=== PATIENT | female | born 1955 | race Caucasian/White ===

== ENCOUNTER 2016-12-16 10:31 | Emergency (ER) | payer MEDICARE, BC ==
[2016-12-16 10:43] VITALS: BP 130/71
[2016-12-16] MEDS ORDERED: DIAZEPAM 5 MG/ML SYRG IM ONE (11:04)
[2016-12-16] MEDS ORDERED: KETOROLAC TROMETHAMINE 60 MG/2 ML VIAL IM ONE ×2 (11:04→11:10)
[2016-12-16] MEDS ORDERED: DIAZEPAM 5 MG/ML SYRG ONE (11:10)
--- NOTE | 2016-12-16 11:21 | ERNOTE ---
Back Pain ER HPI Date of Service: 12/16/16 Presenting Symptoms: injury/pain to back Time Seen by Provider: 12/16/16 10:54 Source: patient, RN notes reviewed Exam Limitations: no limitations Immunizations: IMMUNIZATION HX Immunizations Up to Date Yes History of Influenza Vaccine No Allergies/Adverse Reactions: Allergies No Known Allergies Allergy (Verified 12/16/16 10:43) Home Medications: HOME MEDICATIONS Atenolol [Tenormin] 25 mg PO DAILY 08/14/15 [Last Taken Unknown] Enalapril Maleate [Vasotec] 20 mg PO BID 08/14/15 [Last Taken Unknown] Hydrochlorothiazide [Hydrodiuril] 25 mg PO DAILY 08/14/15 [Last Taken Unknown] Levothyroxine Sodium [Synthroid] 25 mcg PO DAILY 08/14/15 [Last Taken Unknown] Losartan Potassium [Cozaar] 100 mg PO DAILY 08/14/15 [Last Taken Unknown] Simvastatin [Zocor] 40 mg PO HS 08/14/15 [Last Taken Unknown] amLODIPine BESYLATE [Norvasc] 10 mg PO DAILY 08/14/15 [Last Taken Unknown] metFORMIN HCL [Glucophage] 1,000 mg PO BID 08/14/15 [Last Taken Unknown] Cyclobenzaprine HCl [Flexeril] 10 mg PO TID PRN #30 tab 12/16/16 [Last Taken Unknown] Glimepiride [Amaryl] 4 mg PO DAILY@0700 12/16/16 [Last Taken Unknown] Ibuprofen [Motrin] 600 mg PO Q6H PRN #40 tab 12/16/16 [Last Taken Unknown] Insulin Detemir [Levemir] 1 units SC 12/16/16 [Last Taken Unknown] Sitagliptin Phosphate [Januvia] 100 mg PO DAILY 12/16/16 [Last Taken Unknown] Narrative: 61 y/o female to ED in wheelchair from the walk in clinic for right sided low back pain that began without incident 3 days ago. Her pain is worse today despite seeing her chiropractor yesterday. She took ibuprofen earlier this morning with some improvement. She has no history of prior back problems. She does have chronic difficulty with mobility d/t an ankle dislocation on the left 5 years ago. She has to wear a brace on this extremity. She also uses a lift chair at home. She reports being ill with watery diarrhea for several days last week. This has resolved. Date (Duration): 12/13/16 Timing: Reports: getting worse Quality/Severity: Reports: severe, aching Location of pain: Reports: lower back, no radiation Activities at Onset: Reports: none - but recent alteration in activity d/t illness Recent Injury?: Reports: no Associated Symptoms: Reports: difficulty walking - chronic. Denies: fever/ chills, sweating, constipation/incontinence, nausea/vomiting, problems urinating , numbess/weakness in legs Prior Treament: Denies: recently seen, similar symptoms before Review of Systems - Review of Systems Constitutional: Present: recent illness. Absent: fever, chills EYE: Present: no symptoms reported ENT: Present: no symptoms reported Respiratory: Absent: shortness of breath, cough Cardiology: Absent: chest pain, syncope Gastrointestinal/Abdominal: Absent: nausea, vomiting, diarrhea, abdominal pain Genitourinary: Absent: frequency, dysuria, hematuria Musculoskeletal: Present: back pain, muscle pain. Absent: neck pain, joint pain Skin: Absent: rash, lesions, lumps Neurological: Absent: weakness, numbness, tingling Endocrine: Present: no symptoms reported Hematologic/Lymphatic: Present: no symptoms reported Psych: Present: no symptoms reported - Patient's Past Medical History Patient History - Medical: Diabetes Type 2 Insulin Dependent, Obesity Patient History - Cardiac/Respiratory: Hypertension Patient History - Cancer: No Hx of Cancer Patient History - Surgical Procedures: Cholecystectomy, Colonoscopy, LMP (females 10-50): Menopausal - Social History Living Situations: home Smoking Status: Never smoker Alcohol Use: none Drug Use: none Physical Exam - Physical Exam General Appearance: Present: wd/wn, alert, no apparent distress, obese, other - appropriately dressed and groomed, appears mildly uncomfortable Neck: Present: normal inspection, nontender, supple, full range of motion Respiratory: Present: no respiratory distress, normal breath sounds, no accessory muscle use, lungs clear Cardiovascular/Chest: Present: regular rate, rhythm, no murmur, normal peripheral pulses Back Exam: Present: no CVA tenderness, no vertebral tenderness, other - paraspinal muscle tenderness in right lumbar/sacral region Extremity Exam: Present: normal inspection, non-tender, no edema, decreased range of motion - left ankle - chronic Neurological Exam: Present: alert, oriented, normal mood/affect, no motor/ sensory deficits, other - Good strength against resistance in right leg, dorsiflexes great toe Skin Exam: Present: normal color, warm/dry ED Progress - Vital Signs Patient's Vital Signs:: I have reviewed the patient's vital signs. Vital Signs: Vital Signs 12/16/16 10:39 Temperature 35.4 C L Pulse Rate 57 L Respiratory 14 Rate Blood Pressure 130/71 O2 Sat by Pulse 100 Oximetry - Progress/Reassessment Chief Complaint: Back Pain Progress:: Improved Departure Clinical Impression: Low back pain Qualifiers: Chronicity: acute Back pain laterality: right Sciatica presence: without sciatica Qualified Code(s): M54.5 - Low back pain - Departure Disposition: Home Follow Up Needed Condition: Good Instructions: Back Pain, Adult Additional Instructions: Take ibuprofen routinely with food for the next several days Take muscle relaxant as needed Heat to sore area Gentle stretching and ambulation OK to see chiropractor as planned Follow up with your doctor if no improvement in 1 week Referrals: Edie Mayers ARNP [Primary Care Provider] - Prescriptions: Cyclobenzaprine HCl [Flexeril] 10 mg PO TID PRN #30 tab PRN Reason: MUSCLE SPASMS Ibuprofen [Motrin] 600 mg PO Q6H PRN #40 tab PRN Reason: Pain
== END 2016-12-16 11:28 | disposition home or self-care (01) ==
LOC: ER 10:31
DX: M54.5 Low back pain (principal); Z78.0 Asymptomatic menopausal state; Z90.49 Acquired absence of other specified parts of digestive tract; E11.9 Type 2 diabetes mellitus without complications; Z79.4 Long term (current) use of insulin; I10 Essential (primary) hypertension

== ENCOUNTER 2017-02-15 06:57 | Day surgery (SDC) | payer MEDICARE, BC ==
[~2017-02-15 06:57] MED LIST: ACETAMINOPHEN 325 MG TABLET PO PRN; ACETYLCHOLINE CHLORIDE 20 DROP KIT IO PRN; BUPIVACAINE HCL/PF 30 ML VIAL IJ PRN; CYCLOPENTOLATE HCL 20 DROP BTL LEFTEYE PRN; DEXTROSE 5%-0.5 NORMAL SALINE 1,000 ML IV PRN; EPINEPHrine 1 MG/ML AMPUL IO PRN; HYALURONATE SODIUM 0.4 ML DISP.SYRIN IO PRN; HYALURONATE SODIUM 0.85 ML DISP.SYRIN IO PRN; LIDOCAINE HCL/PF 200 MG/5 ML AMPUL TP PRN; LIDOCAINE HCL/PF 5 ML VIAL IO PRN; NORMAL SALINE 3 ML BOX IV PRN; TETRACAINE HCL 150 DROP BTL OP PRN
--- OUTSIDE RECORDS SUMMARY | 2017-02-15 07:00 | XMS REPORT | Continuity of Care Document ---
:1955 Author Organization [facility] ([facility]) Address [address] [place] [address] Phone [phone] Care Team Providers Name Role Phone Edie Mayers Primary Care Provider [phone] Source Comments This disclosure is being made pursuant to the Care Everywhere program, applicable federal and state laws, and may not contain all informaitonavailable regarding this patient.[facility] ([facility]) Active Allergies and Adverse Reactions No Known Allergies Current Medications Prescription Sig. Disp. Refills Start Date End Date Status hydrochlorothiazide take 25 mg by Active (HYDRODIURIL) 25 mg mouth daily. tablet atenolol (TENORMIN) 25 mg take 25 mg by Active tablet mouth daily. metformin (GLUCOPHAGE) take 1,000 mg by Active 1,000 mg tablet mouth 2 times daily with meals. amLODIPine (NORVASC) 5 mg Take 10 mg by Active tablet mouth daily. enalapril (VASOTEC) 20 mg Take 20 mg by Active tablet mouth 2 times daily. Indications: protein nephropathy simvastatin 40 mg tablet Take 40 mg by Active mouth every evening. losartan 100 mg tablet Take 100 mg by Active mouth daily. aspirin 325 mg EC tablet Take 1 Tab by 60 Tab 0 07/20/2011 Active mouth daily. Indications: dvt prophylaxis LEVOTHYROXINE 25 mcg 01/17/2015 Active tablet levETIRAcetam 500 mg Take 1 tablet 14 tablet 0 08/15/2015 Active tablet (500 mg total) by mouth 2 times daily CYCLOBENZAPRINE 5 mg 08/19/2015 Active tablet citalopram 10 mg tablet Take 10 mg by Active mouth daily CITALOPRAM 20 mg tablet 07/08/2015 Active cholecalciferol (VITAMIN Take 5,000 Units Active D3) 5,000 unit capsule by mouth daily. INSULIN DETEMIR (LEVEMIR 40 a.m. & 40 Active SC) p.m. brimonidine 0.15 % Instill 1 Drop 5 mL 11 04/16/2016 Active ophthalmic solution onto both eyes 3 times daily. 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 Diabetic foot ulcer 12/08/2011 Cellulitis of foot, right 12/08/2011 Hypertension 12/08/2011 Obesity, unspecified 12/08/2011 DIABETES UNCOMPL ADULT-UNCONTRLLED 09/05/2003 Immunizations Name Dates Previously Given Next Due Influenza, PF 08/27/2010 Social History Tobacco Use Types Packs/Day Years Used Date Never Smoker Smokeless Tobacco: Never Used Tobacco Cessation:Counseling Given: Yes Comments: Alcohol Use Drinks/Week oz/Week Comments No Last Filed Vital Signs Vital Sign Reading Time Taken Blood Pressure 160/72 10/04/2015 10:58 AM ATHLETIC AGENT Pulse 63 10/04/2015 10:58 AM ATHLETIC AGENT Temperature 35.6 C (96.1 F) 10/04/2015 10:58 AM ATHLETIC AGENT Respiratory Rate 18 08/19/2015 10:15 PM CDT Height 1.803 m (5' 10.98") 10/04/2015 10:58 AM ATHLETIC AGENT Weight 148.5 kg (327 lb 6.1 oz) 10/04/2015 10:58 AM ATHLETIC AGENT Body Mass Index 45.68 10/04/2015 10:58 AM ATHLETIC AGENT Oxygen Saturation 99% 08/19/2015 10:15 PM CDT Plan of Care Health Maintenance Due Date Last Done Comments HCV Screening 1955 Hepatitis B Vaccine (1 of 3 - 1955 Primary Series) Tdap Vaccine 1966 DIABETIC: Cholesterol 1973 Diabetic: Hdl 1973 Diabetic: Ldl 1973 DIABETIC: Triglycerides 1973 Td Vaccine 1973 Pneumococcal Vaccine (1 of 1 1974 - PPSV23) Cervical Cancer Screening 1985 Mammogram 1995 DIABETIC: Microalbumin 09/05/2004 09/05/2003 Colonoscopy 06/22/2005 DIABETIC: Foot Exam 05/12/2011 DIABETIC: Hemoglobin A1C 06/07/2012 12/08/2011, 08/22/2010 Zoster Vaccine 2015 Influenza Vaccine: Seasonal 06/29/2016 08/27/2010 (#1) DIABETIC: Retinal Eye Exam 08/13/2017 08/13/2016, Additional history exists 04/16/2016, 02/20/2016 Results from Last 3 Months Not on file
--- OUTSIDE RECORDS SUMMARY | 2017-02-15 07:01 | XMS REPORT | Summary of Care ---
:1955 Author Organization [facility] Address [address] [place] [id number] Care Team Providers Name Role Phone Rahel Mayers Primary Care Physician Encounter Date(s): 05/04/16 - 05/04/[address] [id number] Final: Type 2 diabetes mellitus without complications Final: Essential (primary) hypertension Final: Morbid (severe) obesity due to excess calories Discharge Disposition: Discharged to Home or Self Care Attending Physician: LARS Hernandez Admitting Physician: LARS Hernandez Vital Signs No data available for this section Problem List Condition Effective Dates Status Health Status Informant Ankle fracture(Confirmed) 2009 Active Benign hypertension(Confirmed) Active Diabetes mellitus type 2(Confirmed) Active Heart murmur(Confirmed) Active Microalbuminuria(Confirmed) Active Morbid obesity(Confirmed) Active Osteoporosis(Confirmed) Active Proteinuria(Confirmed) Active Varicose veins of lower Active extremities(Confirmed) Allergies, Adverse Reactions, Alerts No Known Medication Allergies Medications Soco-D 12 Hour 60 mg-120 mg oral tablet, extended release 1 tab(s), Oral, q12hr interval, # 14 tab(s), 0 Refill(s), Start Date: 07/17/15 10:59:00 CDT, Pharmacy: [id number] Start Date: 07/17/15 Stop Date: 08/15/15 Status: CompletedAmbien 10 mg oral tablet 1 tab(s), Oral, HS, PRN for sleep, 0 Refill(s) Start Date: 04/07/12 Stop Date: 06/25/14 Status: DiscontinuedamLODIPine 10 mg oral tablet 1 tab(s), Oral, Daily, # 90 tab(s), 3 Refill(s), Start Date: 06/25/14 10:06:00 CDT, Pharmacy: [place] [id number] Start Date: 06/25/14 Stop Date: 06/24/15 Status: CompletedamLODIPine 10 mg oral tablet 1 tab(s), Oral, Daily, Needs appt and labs, # 90 tab(s), 0 Refill(s), Start Date : 06/24/15 9:53:22 CDT, Pharmacy: [place] [id number] Special Instructions: Needs appt and labs Start Date: 06/24/15 Stop Date: 12/18/15 Status: CompletedamLODIPine 10 mg oral tablet 1 tab(s), Oral, Daily, # 90 tab(s), 3 Refill(s), Start Date: 12/18/15 11:43:00 PRODUCT STEWARD, Pharmacy: [place] [id number] Start Date: 12/18/15 Status: OrderedamLODIPine 10 mg oral tablet 1 tab(s), Oral, Daily, 0 Refill(s) Start Date: 05/28/14 Stop Date: 06/25/14 Status: Discontinuedaspirin 325 mg oral tablet 1 tab(s), Oral, Daily, 0 Refill(s) Start Date: 05/28/14 Status: Orderedatenolol 25 mg oral tablet 1 tab(s), Oral, Daily, # 90 tab(s), 3 Refill(s), Start Date: 06/25/14 10:06:00 CDT, Pharmacy: [place] [id number] Start Date: 06/25/14 Stop Date: 08/20/15 Status: Completedatenolol 25 mg oral tablet 1 tab(s), Oral, Daily, Was also sent on 08/20, # 90 tab(s), 3 Refill(s), Start Date: 08/26/15 16:13:00 CDT, Pharmacy: [place] [id number] Special Instructions: Was also sent on 08/20 Start Date: 08/26/15 Status: Orderedatenolol 25 mg oral tablet 1 tab(s), Oral, Daily, 0 Refill(s) Start Date: 05/28/14 Stop Date: 06/25/14 Status: Discontinuedatenolol 25 mg oral tablet 1 tab(s), Oral, Daily, # 90 tab(s), 3 Refill(s), Start Date: 08/20/15 8:25:00 CDT, Pharmacy: [place] [id number] Start Date: 08/20/15 Stop Date: 08/26/15 Status: CompletedAugmentin 500 mg-125 mg oral tablet 1 tab(s), Oral, q12hr interval, # 20 tab(s), 0 Refill(s), Start Date: 12/02/15 14:57:00 PRODUCT STEWARD, Pharmacy: [id number] Start Date: 12/02/15 Stop Date: 02/03/16 Status: CompletedAugmentin 500 mg-125 mg oral tablet 1 tab(s), Oral, q12hr interval, # 20 tab(s), 0 Refill(s), Start Date: 07/08/15 10:04:00 CDT, Pharmacy: [place] [id number] Start Date: 07/08/15 Stop Date: 07/17/15 Status: DiscontinuedCeleXA 20 mg oral tablet 1 tab(s), Oral, Daily, # 30 tab(s), 2 Refill(s), Start Date: 07/08/15 10:04:00 CDT, Pharmacy: [place] [id number] Start Date: 07/08/15 Stop Date: 08/15/15 Status: CompletedCheratussin AC 10 mg-100 mg/5 mL oral syrup 5 mL, Oral, q4hr, PRN for cough, # 240 mL, 0 Refill(s), Start Date: 07/09/15 15: 47:00 CDT, Pharmacy: [place] [id number] Start Date: 07/09/15 Stop Date: 08/15/15 Status: Discontinuedenalapril 20 mg oral tablet 1 tab(s), Oral, BID, # 180 tab(s), 3 Refill(s), Start Date: 06/25/14 10:06:00 CDT, Pharmacy: [place] [id number] Start Date: 06/25/14 Stop Date: 06/17/15 Status: Completedenalapril 20 mg oral tablet 1 tab(s), Oral, BID, Has an appt 7/30, # 180 tab(s), 3 Refill(s), Start Date: 10:34:27 CDT, Pharmacy: [place] [id number] Special Instructions: Has an appt 7/30 Start Date: 06/17/15 Stop Date: 06/11/16 Status: Orderedenalapril 20 mg oral tablet 1 tab(s), Oral, BID, 0 Refill(s) Start Date: 05/28/14 Stop Date: 06/25/14 Status: DiscontinuedFlexeril 5 mg oral tablet 1 tab(s), Oral, TID, PRN pain mild 1-3, # 21 tab(s), 0 Refill(s), Start Date: 16:31:00 CDT, Pharmacy: [facility] Start Date: 08/19/15 Stop Date: 02/03/16 Status: CompletedFlexeril 5 mg oral tablet tab(s), Oral, TID, PRN pain mild 1-3, # 21 tab(s), 0 Refill(s), Start Date: 16:24:00 CDT Start Date: 08/19/15 Stop Date: 08/19/15 Status: DiscontinuedHumaLOG 100 units/mL subcutaneous solution See Instructions, inject 8 units + additional per sliding scale by Subcutaneous route 30 minutes before meals 3 month supply please, # 10 mL, 0 Refill(s), Start Date: 06/25/14 10:06:00 CDT, Pharmacy:[facility] Special Instructions: inject 8 units + additional per sliding scale by Subcutaneous route 30 minutes before meals 3 month supply please Start Date: 06/25/14 Stop Date: 02/03/16 Status: DiscontinuedHumaLOG 100 units/mL subcutaneous solution See Instructions, inject 5 units + additional per sliding scale by Subcutaneous route 30 minutes before meals, 0 Refill(s) Special Instructions: inject 5 units + additional per sliding scale by Subcutaneous route 30 minutes before meals Start Date: 05/28/14 Stop Date: 06/25/14 Status: Discontinuedhydrochlorothiazide 25 mg oral tablet 1 tab(s), Oral, Daily, # 90 tab(s), 3 Refill(s), Start Date: 06/25/14 10:06:00 CDT, Pharmacy: [facility] Start Date: 06/25/14 Stop Date: 08/20/15 Status: Completedhydrochlorothiazide 25 mg oral tablet 1 tab(s), Oral, Daily, Was also sent on 08/20, # 90 tab(s), 3 Refill(s), Start Date: 08/26/15 16:13:00 CDT, Pharmacy: [facility] Special Instructions: Was also sent on 08/20 Start Date: 08/26/15 Status: Orderedhydrochlorothiazide 25 mg oral tablet 1 tab(s), Oral, Daily, 0 Refill(s) Start Date: 05/28/14 Stop Date: 06/25/14 Status: Discontinuedhydrochlorothiazide 25 mg oral tablet 1 tab(s), Oral, Daily, # 90 tab(s), 3 Refill(s), Start Date: 08/20/15 8:25:00 CDT, Pharmacy: [facility] Start Date: 08/20/15 Stop Date: 08/26/15 Status: CompletedLantus 100 units/mL subcutaneous solution See Instructions, inject 80 units by subcutaneous route in AM and 53 units in PM 3 months supply please , # 10 mL, 1 Refill(s), Start Date: 11/26/14 9 :59:29 PRODUCT STEWARD, Pharmacy: [facility] Special Instructions: inject 80 units by subcutaneous route in AM and 53 units in PM 3 months supply please Start Date: 11/26/14 Stop Date: 09/05/15 Status: CompletedLantus 100 units/mL subcutaneous solution See Instructions, inject 80 units by subcutaneous 3 months supply please- or enough for each fill ,Notice med change., # 3 vial(s), 5 Refill(s), Start Date: 09/09/15 15:13:00 CDT, Pharmacy: [place] [id number] Special Instructions: inject 80 units by subcutaneous 3 months supply please- or enough for each fill ,Notice med change. Start Date: 09/09/15 Stop Date: 12/18/15 Status: DiscontinuedLantus 100 units/mL subcutaneous solution See Instructions, inject 80 units by subcutaneous route in AM and 53 units in PM 3 months supply please ,Notice med increase, # 10 mL, 1 Refill(s), Start Date: 09/05/15 18:03:00 CDT, Pharmacy:[facility] Special Instructions: inject 80 units by subcutaneous route in AM and 53 units in PM 3 months supply please ,Notice med increase Start Date: 09/05/15 Stop Date: 09/09/15 Status: CompletedLantus 100 units/mL subcutaneous solution See Instructions, inject 60 units by subcutaneous route in AM and 50 units in PM 3 months supply please , # 10 mL, 3 Refill(s), Pharmacy: [facility] Special Instructions: inject 60 units by subcutaneous route in AM and 50 units in PM 3 months supply please Start Date: 06/25/14 Stop Date: 08/22/14 Status: CompletedLantus 100 units/mL subcutaneous solution See Instructions, inject 60 units by subcutaneous route in AM and 50 units in PM , 0 Refill(s) Special Instructions: inject 60 units by subcutaneous route in AM and 50 units in PM Start Date: 05/28/14 Stop Date: 06/25/14 Status: DiscontinuedLantus 100 units/mL subcutaneous solution See Instructions, inject 60 units by subcutaneous route in AM and 50 units in PM 3 months supply please , # 10 mL, 1 Refill(s), Start Date: 08/22/14 14:24:45 CDT, Pharmacy: [facility] Special Instructions: inject 60 units by subcutaneous route in AM and 50 units in PM 3 months supply please Start Date: 08/22/14 Stop Date: 11/26/14 Status: CompletedLevemir 100 units/mL subcutaneous solution See Instructions, Subcutaneous 48 units bid. DC Lantus. Dispense #90 day supply , # 3 bottles, 3 Refill(s), Start Date: 12/18/15 11:43:00 PRODUCT STEWARD, Pharmacy: [id number], [id number], 09/29/17 Special Instructions: Subcutaneous 48 units bid. DC Lantus. Dispense #90 day supply Start Date: 12/18/15 Status: OrderedLevemir 100 units/mL subcutaneous solution See Instructions, Subcutaneous 80 units daily. DC Lantus. Dispense #90 day supply, # 3 bottles, 3 Refill(s), Start Date: 12/10/15 11:17:00 PRODUCT STEWARD, Pharmacy: [facility] Special Instructions: Subcutaneous 80 units daily. DC Lantus. Dispense #90 day supply Start Date: 12/10/15 Stop Date: 12/18/15 Status: CompletedLevemir 100 units/mL subcutaneous solution See Instructions, Subcutaneous, # 3 bottles, 3 Refill(s), Start Date: 12/10/15 8 :31:00 PRODUCT STEWARD Special Instructions: Subcutaneous Start Date: 12/10/15 Stop Date: 12/10/15 Status: Discontinuedlosartan 100 mg oral tablet 1 tab(s), Oral, Daily, # 90 tab(s), 3 Refill(s), Start Date: 06/25/14 10:06:14 CDT, Pharmacy: [place] [id number] Start Date: 06/25/14 Stop Date: 10/03/15 Status: Completedlosartan 100 mg oral tablet 1 tab(s), Oral, Daily, Appt due in Dec, # 90 tab(s), 0 Refill(s), Start Date: 11:02:00 PRODUCT STEWARD, Pharmacy: [facility] Special Instructions: Appt due in Dec Start Date: 10/03/15 Stop Date: 12/30/15 Status: Completedlosartan 100 mg oral tablet See Instructions, 1 tab(s) Oral Daily-Has been told to [facility] appt on her last fill. Emmy Allison temp fill, # 30 tab(s), 0 Refill(s), Start Date: 12/30/15 12:06: 00 PRODUCT STEWARD, Pharmacy: [facility] Special Instructions: 1 tab(s) Oral Daily-Has been told to [facility] appt on her last fill. Emmy Allison temp fill Start Date: 12/30/15 Stop Date: 02/05/16 Status: Completedlosartan 100 mg oral tablet 1 tab(s), Oral, Daily, PLEASE INFORM PATIENT THAT SHE NEEDS TO MAKE AN APPT WITH [facility]. NO FURTHER REFILLS WILL BE AUTHORIZED, # 30 tab(s), 0 Refill(s), Pharmacy: [facility] Special Instructions: PLEASE INFORM PATIENT THAT SHE NEEDS TO MAKE AN APPT WITH [facility]. NO FURTHER REFILLS WILL BE AUTHORIZED Start Date: 06/08/14 Stop Date: 06/25/14 Status: Discontinuedlosartan 100 mg oral tablet 1 tab(s), Oral, Daily, PLEASE INFORM PATIENT THAT SHE NEEDS TO MAKE AN APPT WITH [facility]. NO FURTHER REFILLS WILL BE AUTHORIZED, # 30 tab(s), 0 Refill(s), Pharmacy: [place] [id number] Special Instructions: PLEASE INFORM PATIENT THAT SHE NEEDS TO MAKE AN APPT WITH [facility]. NO FURTHER REFILLS WILL BE AUTHORIZED Start Date: 05/03/14 Stop Date: 06/08/14 Status: Completedlosartan 100 mg oral tablet 1 tab(s), Oral, Daily, PLEASE INFORM PATIENT THAT SHE NEEDS TO MAKE AN APPT WITH [facility]. NO FURTHER REFILLS WILL BE AUTHORIZED, # 30 tab(s), 0 Refill(s) Special Instructions: PLEASE INFORM PATIENT THAT SHE NEEDS TO MAKE AN APPT WITH [facility]. NO FURTHER REFILLS WILL BE AUTHORIZED Start Date: 05/03/14 Stop Date: 05/03/14 Status: Discontinuedlosartan 100 mg oral tablet 1 tab(s), Oral, Daily, # 30 tab(s), 5 Refill(s), Start Date: 02/05/16 21:38:00 PRODUCT STEWARD, Pharmacy: [place] [id number] Start Date: 02/05/16 Status: OrderedmetFORMIN 1000 mg oral tablet 1 tab(s), Oral, BID, # 180 tab(s), 3 Refill(s), Start Date: 06/25/14 10:06:00 CDT, Pharmacy: [place] [id number] Start Date: 06/25/14 Stop Date: 07/31/15 Status: CompletedmetFORMIN 1000 mg oral tablet 1 tab(s), Oral, BID, # 180 tab(s), 5 Refill(s), Start Date: 07/31/15 8:52:00 CDT , Pharmacy: [place] [id number] Start Date: 07/31/15 Stop Date: 01/21/17 Status: OrderedmetFORMIN 1000 mg oral tablet 1 tab(s), Oral, BID, 0 Refill(s) Start Date: 05/28/14 Stop Date: 06/25/14 Status: DiscontinuedMucinex mg, Oral, q12hr interval, 0 Refill(s), Start Date: 05/04/16 13:36:00 CDT Start Date: 05/04/16 Stop Date: 05/04/16 Status: DiscontinuedMucinex 600 mg oral tablet, extended release 1 tab(s), Oral, q12hr interval, # 20 tab(s), 0 Refill(s), Start Date: 05/04/16 13:43:00 CDT, Pharmacy: [facility] Start Date: 05/04/16 Stop Date: 05/14/16 Status: Orderednabumetone 500 mg oral tablet 2 tab(s), Oral, Daily, # 60 tab(s), 0 Refill(s), Start Date: 08/15/15 9:45:00 CDT, Pharmacy: [facility] Start Date: 08/15/15 Stop Date: 08/15/15 Status: CompletedOnglyza 5 mg oral tablet 1 tab(s), Oral, Daily, # 21 tab(s), 0 Refill(s), Start Date: 02/27/16 17:21:00 CDT, samples given to patient (Rx), [id number], 01/27/17 Start Date: 02/27/16 Stop Date: 03/19/16 Status: CompletedOnglyza 5 mg oral tablet 1 tab(s), Oral, Daily, samples- Also 2.5 mg x 2 boxes [id number], # 3 boxes, 0 Refill(s), Start Date: 05/04/16 11:38:23 CDT, samples given to patient (Rx), [id number] x 3 boxes, 01/27/17 Special Instructions: samples- Also 2.5 mg x 2 boxes [id number] Start Date: 05/04/16 Status: OrderedOnglyza 5 mg oral tablet 1 tab(s), Oral, Daily, samples, # 42 tab(s), 0 Refill(s), Start Date: 03/19/16 11:06:35 CDT, samples given to patient (Rx), [id number] x 42 tabs, 01/27/17 Special Instructions: samples Start Date: 03/19/16 Stop Date: 05/04/16 Status: CompletedPercocet 5/325 tab(s), Oral, q6hr interval, 0 Refill(s), Start Date: 08/15/15 8:57:00 CDT Start Date: 08/15/15 Stop Date: 3/7/16 Status: CompletedPromethazine VC 6.25 mg-5 mg/5 mL oral syrup 5 mL, Oral, q6hr interval, PRN cough, # 240 mL, 0 Refill(s), Start Date: 10:05:00 CDT Start Date: 07/08/15 Stop Date: 07/09/15 Status: Discontinuedsimvastatin 20 mg oral tablet 1 tab(s), Oral, HS, called to [facility] today., # 90 tab(s), 0 Refill(s), Start Date : 12/18/15 13:33:00 PRODUCT STEWARD Special Instructions: called to [facility] today. Start Date: 12/18/15 Status: Orderedsimvastatin 40 mg oral tablet 1 tab(s), Oral, HS, # 90 tab(s), 3 Refill(s), Start Date: 09/05/15 11:13:00 CDT , Pharmacy: [place] [id number] Start Date: 09/05/15 Stop Date: 02/03/16 Status: Completedsimvastatin 40 mg oral tablet 1 tab(s), Oral, HS, # 90 tab(s), 3 Refill(s), Start Date: 06/25/14 10:06:10 CDT , Pharmacy: [facility] Start Date: 06/25/14 Stop Date: 09/05/15 Status: Completedsimvastatin 40 mg oral tablet 1 tab(s), Oral, HS, PLEASE INFORM PATIENT THAT SHE NEEDS TO MAKE AN APPT WITH [facility]. NO FURTHER REFILLS WILL BE AUTHORIZED., # 30 tab(s), 0 Refill(s), Pharmacy: [place] [id number] Special Instructions: PLEASE INFORM PATIENT THAT SHE NEEDS TO MAKE AN APPT WITH [facility]HEL. NO FURTHER REFILLS WILL BE AUTHORIZED. Start Date: 05/03/14 Stop Date: 06/20/14 Status: Completedsimvastatin 40 mg oral tablet 1 tab(s), Oral, HS, PLEASE INFORM PATIENT THAT SHE NEEDS TO MAKE AN APPT WITH [facility]. NO FURTHER REFILLS WILL BE AUTHORIZED., # 30 tab(s), 0 Refill(s) Special Instructions: PLEASE INFORM PATIENT THAT SHE NEEDS TO MAKE AN APPT WITH [facility]. NO FURTHER REFILLS WILL BE AUTHORIZED. Start Date: 05/03/14 Stop Date: 05/03/14 Status: Discontinuedsimvastatin 40 mg oral tablet 1 tab(s), Oral, HS, PLEASE INFORM PATIENT THAT SHE NEEDS TO MAKE AN APPT WITH [facility]. NO FURTHER REFILLS WILL BE AUTHORIZED., # 30 tab(s), 0 Refill(s), Pharmacy: [place] [id number] Special Instructions: PLEASE INFORM PATIENT THAT SHE NEEDS TO MAKE AN APPT WITH [facility]HEL. NO FURTHER REFILLS WILL BE AUTHORIZED. Start Date: 06/20/14 Stop Date: 06/25/14 Status: DiscontinuedSynthroid 25 mcg (0.025 mg) oral tablet 1 tab(s), Oral, Daily, # 90 tab(s), 0 Refill(s), Start Date: 06/25/14 10:06:00 CDT, Pharmacy: [place] [id number] Start Date: 06/25/14 Stop Date: 09/25/14 Status: CompletedSynthroid 25 mcg (0.025 mg) oral tablet 1 tab(s), Oral, Daily, Due for an appt and labs, # 90 tab(s), 0 Refill(s), Start Date: 06/24/15 9:53:21 CDT, Pharmacy: [place] [id number] Special Instructions: Due for an appt and labs Start Date: 06/24/15 Stop Date: 12/18/15 Status: CompletedSynthroid 25 mcg (0.025 mg) oral tablet 1 tab(s), Oral, Daily, # 90 tab(s), 3 Refill(s), Start Date: 12/18/15 11:43:00 PRODUCT STEWARD, Pharmacy: [facility] Start Date: 12/18/15 Status: OrderedSynthroid 25 mcg (0.025 mg) oral tablet 1 tab(s), Oral, Daily, # 90 tab(s), 3 Refill(s), Start Date: 09/25/14 10:30:31 CDT, Pharmacy: [place] [id number] Start Date: 09/25/14 Stop Date: 06/24/15 Status: CompletedTessalon 200 mg oral capsule 1 cap(s), Oral, TID, PRN cough, # 60 tab(s), 1 Refill(s), Start Date: 09/25/14 10:29:00 CDT, Pharmacy: [facility] Start Date: 09/25/14 Stop Date: 12/25/14 Status: DiscontinuedZithromax 250 mg oral tablet See Instructions, as directed on package labeling, # 6 tab(s), 0 Refill(s), Start Date: 07/17/15 10:55:00 CDT, Pharmacy: [id number] Special Instructions: as directed on package labeling Start Date: 07/17/15 Stop Date: 08/15/15 Status: Discontinued Results Patient Viewable Results Most recent to oldest [Reference Range]: 1 Sodium Lvl [135-144 mEq/L] 142 mEq/L (05/04/16 7:01 AM) Potassium Lvl [3.3-4.8 mEq/L] 4.5 mEq/L (05/04/16 7:01 AM) Chloride Lvl [98-107 mEq/L] 105 mEq/L (05/04/16 7:01 AM) Bicarbonate Lvl [22-30 mmol/L] 25 mmol/L (05/04/16 7:01 AM) Anion Gap [10.0-20.0] 16.5 (05/04/16 7:01 AM) Glucose Lvl [70-108 mg/dL] 184 mg/dL *HI* (05/04/16 7:01 AM) BUN [7-21 mg/dL] 20 mg/dL (05/04/16 7:01 AM) Creatinine Lvl [0.50-1.20 mg/dL] 0.92 mg/dL (05/04/16 7:01 AM) BUN/Creat Ratio 21.7 *NA* (05/04/16 7:01 AM) eGFR AA [>=60] >60 (05/04/16 7:01 AM) eGFR RODO [>=60] >60 (05/04/16 7:01 AM) Calcium Lvl [8.6-10.2 mg/dL] 9.6 mg/dL (05/04/16 7:01 AM) Total Protein [6.4-8.3 g/dL] 7.3 g/dL (05/04/16 7:01 AM) Albumin Lvl [3.5-5.2 g/dL] 3.6 g/dL (05/04/16 7:01 AM) Globulin 3.7 *NA* (05/04/16 7:01 AM) A/G Ratio [0.9-1.8] 1.0 (05/04/16 7:01 AM) Bilirubin Total [0.1-1.0 mg/dL] 0.3 mg/dL (05/04/16 7:01 AM) Alkaline Phosphatase [39-129 unit/L] 87 unit/L (05/04/16 7:01 AM) AST [0-39 unit/L] 14 unit/L (05/04/16 7:01 AM) ALT [0-40 unit/L] 9 unit/L (05/04/16 7:01 AM) Glycated Hemoglobin [4.8-6.0 %] 9.5 % *HI* (05/04/16 7:01 AM) Estimated Average Glucose 226 mg/dL *NA* (05/04/16 7:01 AM) Cholesterol Total [0-200 mg/dL] 104 mg/dL (05/04/16 7:01 AM) Triglyceride [0-199 mg/dL] 148 mg/dL (05/04/16 7:01 AM) HDL Cholesterol [40-100 mg/dL] 35 mg/dL *LOW* (05/04/16 7:01 AM) LDL Cholesterol (Direct) [0-129 mg/dL] 51 mg/dL (05/04/16 7:01 AM) Non HDL Cholesterol [0-159 mg/dL] 69 mg/dL (05/04/16 7:01 AM) Microalbumin, Ur 21 mg/L *NA* (05/04/16 7:05 AM) Creatinine, Urine MA 77.6 mg/dL *NA* (05/04/16 7:05 AM) Ur Microalb/Creat Ratio [0-29 mg/g Cr] 27 mg/g Cr (05/04/16 7:05 AM) Estimated Creatinine Clearance 101.79 mL/min (05/04/16 7:40 AM) Immunizations Vaccine Date Refusal Reason influenza virus vaccine, inactivated1 09/09/15 1Result Comment: [09/11/2015] [facility] Procedures Procedure Date Related Diagnosis Body Site Echocardiogram1 07/28/12 Right sided toe amputation 2011 Surgery for dislocated ankle 2009 Cholecystectomy ( open procedure) 1974 section x 3 1EF=60-65% Social History No data available for this section Assessment and Plan No data available for this section
--- OUTSIDE RECORDS SUMMARY | 2017-02-15 07:01 | XMS REPORT | Summary of Care ---
:1955 Author Organization [facility] Address [address] [place] [address] Care Team Providers Name Role Phone Rahel Mayers Primary Care Physician Encounter Date(s): 05/04/16 - 05/04/16 [facility], [address] [place], [place] [address] Discharge Diagnosis: Benign hypertension Discharge Diagnosis: Cough Discharge Disposition: 01 Discharged to Home or Self Care Attending Physician: LARS Hernandez Referring Physician: LARS Hernandez Vital Signs Most recent to oldest [Reference Range]: 1 Temperature Tympanic [36.6-38.1 DegC] 36.0 DegC *LOW* (05/04/16 10:50 AM) Temperature C to F 96.8 (05/04/16 10:50 AM) Peripheral Pulse Rate [60-100 bpm] 56 bpm *LOW* (05/04/16 10:50 AM) SpO2 97 % (05/04/16 10:50 AM) Blood Pressure [90-130/60-90 mmHg] 140/84mmHg *HI* (05/04/16 10:50 AM) Mean Arterial Pressure, Cuff 103 mmHg (05/04/16 10:50 AM) Most recent to oldest [Reference Range]: 1 Height/Length Measured 175.23 cm (05/04/16 10:50 AM) Weight Dosing 143.50 kg1 (05/04/16 10:53 AM) Weight Measured 143.5 kg (05/04/16 10:50 AM) BSA Measured 2.51 m2 (05/04/16 10:50 AM) Body Mass Index Measured 46.73 kg/m2 (05/04/16 10:50 AM) 1Result Comment: This result was because the dosing weight was either not entered or it is>30 days old. This result is based off: Weight Measured May 04, 2016 10:50:00 CDT by Cherie Doss [facility] Problem List Condition Effective Dates Status Health [...] Refill(s), Start Date: 07/17/15 10:59:00 CDT, [facility] [place] [id number] Start Date: 07/17/15 Stop Date: 08/15/15 Status: CompletedAmbien 10 mg oral tablet 1 tab(s), Oral, HS, PRN for sleep, 0 Refill(s) Start Date: 04/07/12 Stop Date: 06/25/14 Status: DiscontinuedamLODIPine 10 mg oral tablet 1 tab(s), Oral, Daily, # 90 tab(s), 3 Refill(s), Start Date: 06/25/14 10:06:00 CDT, [facility] [place] [id number] Start Date: 06/25/14 Stop Date: 06/24/15 Status: CompletedamLODIPine 10 mg oral tablet 1 tab(s), Oral, Daily, Needs appt and labs, # 90 tab(s), 0 Refill(s), Start Date : 06/24/15 9:53:22 CDT, Pharmacy: [facility] Special Instructions: Needs appt and labs Start Date: 06/24/15 Stop Date: 12/18/15 Status: CompletedamLODIPine 10 mg oral tablet 1 tab(s), Oral, Daily, # 90 tab(s), 3 Refill(s), Start Date: 12/18/15 11:43:00 SPECIMEN COLLECTOR, Pharmacy: [place] [id number] Start Date: 12/18/15 Status: OrderedamLODIPine 10 mg oral tablet 1 tab(s), Oral, Daily, 0 Refill(s) Start Date: 05/28/14 Stop Date: 06/25/14 Status: Discontinuedaspirin 325 mg oral tablet 1 tab(s), Oral, Daily, 0 Refill(s) Start Date: 05/28/14 Status: Orderedatenolol 25 mg oral tablet 1 tab(s), Oral, Daily, # 90 tab(s), 3 Refill(s), Start Date: 06/25/14 10:06:00 CDT, Pharmacy: [place] [id number] Start Date: 06/25/14 Stop Date: 08/20/15 Status: Completedatenolol 25 mg oral tablet 1 tab(s), Oral, Daily, Was also sent on 08/20, # 90 tab(s), 3 Refill(s), Start Date: 08/26/15 16:13:00 CDT, Pharmacy: [place] [id number] Special Instructions: Was also sent on 08/20 Start Date: 08/26/15 Status: Orderedatenolol 25 mg oral tablet 1 tab(s), Oral, Daily, 0 Refill(s) Start Date: 05/28/14 Stop Date: 06/25/14 Status: Discontinuedatenolol 25 mg oral tablet 1 tab(s), Oral, Daily, # 90 tab(s), 3 Refill(s), Start Date: 08/20/15 8:25:00 CDT, Pharmacy: [facility] Start Date: 08/20/15 Stop Date: 08/26/15 Status: CompletedAugmentin 500 mg-125 mg oral tablet 1 tab(s), Oral, q12hr interval, # 20 tab(s), 0 Refill(s), Start Date: 12/02/15 14:57:00 SPECIMEN COLLECTOR, Pharmacy: [id number] Start Date: 12/02/15 Stop Date: 02/03/16 Status: CompletedAugmentin 500 mg-125 mg oral tablet 1 tab(s), Oral, q12hr interval, # 20 tab(s), 0 Refill(s), Start Date: 07/08/15 10:04:00 CDT, Pharmacy: [facility] Start Date: 07/08/15 Stop Date: 07/17/15 Status: DiscontinuedCeleXA 20 mg oral tablet 1 tab(s), Oral, Daily, # 30 tab(s), 2 Refill(s), Start Date: 07/08/15 10:04:00 CDT, Pharmacy: [place] [id number] Start Date: 07/08/15 Stop Date: 08/15/15 Status: CompletedCheratussin AC 10 mg-100 mg/5 mL oral syrup 5 mL, Oral, q4hr, PRN for cough, # 240 mL, 0 Refill(s), Start Date: 07/09/15 15: 47:00 CDT, Pharmacy: [facility] Start Date: 07/09/15 Stop Date: 08/15/15 Status: Discontinuedenalapril 20 mg oral tablet 1 tab(s), Oral, BID, # 180 tab(s), 3 Refill(s), Start Date: 06/25/14 10:06:00 CDT, Pharmacy: [place] [id number] Start Date: 06/25/14 Stop Date: 06/17/15 Status: Completedenalapril 20 mg oral tablet 1 tab(s), Oral, BID, Has an appt 06/27, # 180 tab(s), 3 Refill(s), Start Date: 10:34:27 CDT, Pharmacy: [place] [id number] Special Instructions: Has an appt 06/27 Start Date: 06/17/15 Stop Date: 06/11/16 Status: Orderedenalapril 20 mg oral tablet 1 tab(s), Oral, BID, 0 Refill(s) Start Date: 05/28/14 Stop Date: 06/25/14 Status: DiscontinuedFlexeril 5 mg oral tablet 1 tab(s), Oral, TID, PRN pain mild 1-3, # 21 tab(s), 0 Refill(s), Start Date: 16:31:00 CDT, Pharmacy: [place] [id number] Start Date: 08/19/15 Stop Date: 02/03/16 Status: [...] 0 Refill(s), Start Date: 06/25/14 10:06:00 CDT, Pharmacy:[facility] Special Instructions: inject 8 units + additional [...] Refill(s), Start Date: 06/25/14 10:06:00 CDT, Pharmacy: [facility] Start Date: 06/25/14 Stop Date: 08/20/15 Status: Completedhydrochlorothiazide 25 mg oral tablet 1 tab(s), Oral, Daily, Was also sent on 08/20, # 90 tab(s), 3 Refill(s), Start Date: 08/26/15 16:13:00 CDT, Pharmacy: [facility] Special Instructions: Was also sent on 08/20 Start Date: 08/26/15 Status: Orderedhydrochlorothiazide 25 mg oral tablet 1 tab(s), Oral, Daily, 0 Refill(s) Start Date: 05/28/14 Stop Date: 06/25/14 Status: Discontinuedhydrochlorothiazide 25 mg oral tablet 1 tab(s), Oral, Daily, # 90 tab(s), 3 Refill(s), Start Date: 08/20/15 8:25:00 CDT, Pharmacy: [facility] Start Date: 08/20/15 Stop Date: 08/26/15 Status: CompletedLantus 100 units/mL subcutaneous solution See Instructions, inject 80 units by subcutaneous route in AM and 53 units in PM 3 months supply please , # 10 mL, 1 Refill(s), Start Date: 11/26/14 9 :59:29 SPECIMEN COLLECTOR, Pharmacy: [facility] Special Instructions: inject 80 units by subcutaneous route in AM and 53 units in PM 3 months supply please Start Date: 11/26/14 Stop Date: 09/05/15 Status: CompletedLantus 100 units/mL subcutaneous solution See Instructions, inject 80 units by subcutaneous 3 months supply please- or enough for each fill ,Notice med change., # 3 vial(s), 5 Refill(s), Start Date: 09/09/15 15:13:00 CDT, [place] [id number] Special Instructions: inject 80 units by subcutaneous 3 months supply please- or enough for each fill ,Notice med change. Start Date: 09/09/15 Stop Date: 12/18/15 Status: DiscontinuedLantus 100 units/mL subcutaneous solution See Instructions, inject 80 units by subcutaneous route in AM and 53 units in PM 3 months supply please ,Notice med increase, # 10 mL, 1 Refill(s), Start Date: 09/05/15 18:03:00 CDT, Pharmacy:[facility] Special Instructions: inject 80 units by subcutaneous route in AM and 53 units in PM 3 months supply please ,Notice med increase Start Date: 09/05/15 Stop Date: 09/09/15 Status: CompletedLantus 100 units/mL subcutaneous solution See Instructions, inject 60 units by subcutaneous route in AM and 50 units in PM 3 months supply please , # 10 mL, 3 Refill(s), Pharmacy: [facility] Special Instructions: inject 60 units [...] Refill(s), Start Date: 08/22/14 14:24:45 CDT, Pharmacy: [facility] Special Instructions: inject 60 units by subcutaneous route in AM and 50 units in PM 3 months supply please Start Date: 08/22/14 Stop Date: 11/26/14 Status: CompletedLevemir 100 units/mL subcutaneous solution See Instructions, Subcutaneous 48 units bid. DC Lantus. Dispense #90 day supply , # 3 bottles, 3 Refill(s), Start Date: 12/18/15 11:43:00 SPECIMEN COLLECTOR, Pharmacy: [facility], [id number], 09/29/17 Special Instructions: Subcutaneous 48 units bid. DC Lantus. Dispense #90 day supply Start Date: 12/18/15 Status: OrderedLevemir 100 units/mL subcutaneous solution See Instructions, Subcutaneous 80 units daily. DC Lantus. Dispense #90 day supply, # 3 bottles, 3 Refill(s), Start Date: 12/10/15 11:17:00 SPECIMEN COLLECTOR, Pharmacy: [facility] Special Instructions: Subcutaneous 80 units daily. DC Lantus. Dispense #90 day supply Start Date: 12/10/15 Stop Date: 12/18/15 Status: CompletedLevemir 100 units/mL subcutaneous solution See Instructions, Subcutaneous, # 3 bottles, 3 Refill(s), Start Date: 12/10/15 8 :31:00 SPECIMEN COLLECTOR Special Instructions: Subcutaneous Start Date: 12/10/15 Stop Date: 12/10/15 Status: Discontinuedlosartan 100 mg oral tablet 1 tab(s), Oral, Daily, # 90 tab(s), 3 Refill(s), Start Date: 06/25/14 10:06:14 CDT, Pharmacy: [facility] Start Date: 06/25/14 Stop Date: 10/03/15 Status: Completedlosartan 100 mg oral tablet 1 tab(s), Oral, Daily, Appt due in Dec, # 90 tab(s), 0 Refill(s), Start Date: 11:02:00 SPECIMEN COLLECTOR, Pharmacy: [place] [id number] Special Instructions: Appt due in Dec Start Date: 10/03/15 Stop Date: 12/30/15 Status: Completedlosartan 100 mg oral tablet See Instructions, 1 tab(s) Oral Daily-Has been told to fozia appt on her last fill. Emmy Allison temp fill, # 30 tab(s), 0 Refill(s), Start Date: 12/30/15 12:06: 00 SPECIMEN COLLECTOR, Pharmacy: [place] [id number] Special Instructions: 1 tab(s) Oral Daily-Has been told to fozia appt on her last fill. Emmy Allison temp fill Start Date: 12/30/15 Stop Date: 02/05/16 Status: Completedlosartan 100 mg oral tablet 1 tab(s), Oral, Daily, PLEASE INFORM PATIENT THAT SHE NEEDS TO MAKE AN APPT WITH [facility]HEL. NO FURTHER REFILLS WILL BE AUTHORIZED, # 30 tab(s), 0 Refill(s), Pharmacy: [facility] Special Instructions: PLEASE INFORM PATIENT THAT SHE NEEDS TO MAKE AN APPT WITH RAHEL. NO FURTHER REFILLS WILL BE AUTHORIZED Start Date: 06/08/14 Stop Date: 06/25/14 Status: Discontinuedlosartan 100 mg oral tablet 1 tab(s), Oral, Daily, PLEASE INFORM PATIENT THAT SHE NEEDS TO MAKE AN APPT WITH RAHEL. NO FURTHER REFILLS WILL BE AUTHORIZED, # 30 tab(s), 0 Refill(s), Pharmacy: [facility] Special Instructions: PLEASE INFORM PATIENT THAT SHE [...] tab(s), 5 Refill(s), Start Date: 02/05/16 21:38:00 SPECIMEN COLLECTOR, Pharmacy: [facility] Start Date: 02/05/16 Status: OrderedmetFORMIN 1000 mg oral tablet 1 tab(s), Oral, BID, # 180 tab(s), 3 Refill(s), Start Date: 06/25/14 10:06:00 CDT, Pharmacy: [facility] Start Date: 06/25/14 Stop Date: 07/31/15 Status: CompletedmetFORMIN 1000 mg oral tablet 1 tab(s), Oral, BID, # 180 tab(s), 5 Refill(s), Start Date: 07/31/15 8:52:00 CDT , Pharmacy: [facility] Start Date: 07/31/15 Stop Date: 01/21/17 Status: [...] Refill(s), Start Date: 05/04/16 13:43:00 CDT, Pharmacy: [facility] Start Date: 05/04/16 Stop Date: 05/14/16 Status: Orderednabumetone 500 mg oral tablet 2 tab(s), Oral, Daily, # 60 tab(s), 0 Refill(s), Start Date: 08/15/15 9:45:00 CDT, Pharmacy: [id number] Start Date: 08/15/15 Stop Date: 08/15/15 Status: CompletedOnglyza 5 mg oral tablet 1 tab(s), Oral, Daily, # 21 tab(s), 0 Refill(s), Start Date: 02/27/16 17:21:00 CDT, samples given to patient (Rx), [id number], 01/27/17 Start Date: 02/27/16 Stop Date: 03/19/16 Status: CompletedOnglyza 5 mg oral tablet 1 tab(s), Oral, Daily, samples- Also 2.5 mg x 2 boxes [id number], # 3 boxes, 0 Refill(s), Start Date: 05/04/16 11:38:23 CDT, samples given to patient (Rx), [id number] x 3 boxes, 01/27/17 Special Instructions: samples- Also 2.5 mg x 2 boxes [id number] Start Date: 05/04/16 Status: OrderedOnglyza 5 mg oral tablet 1 tab(s), Oral, Daily, samples, # 42 tab(s), 0 Refill(s), Start Date: 03/19/16 11:06:35 CDT, samples given to patient (Rx), [id number] x 42 tabs, 01/27/17 Special Instructions: samples Start Date: 03/19/16 Stop Date: 05/04/16 Status: CompletedPercocet 5/325 tab(s), Oral, q6hr interval, 0 Refill(s), Start Date: 08/15/15 8:57:00 CDT Start Date: 08/15/15 Stop Date: 02/03/16 Status: CompletedPromethazine VC 6.25 mg-5 mg/5 mL oral syrup 5 mL, Oral, q6hr interval, PRN cough, # 240 mL, 0 Refill(s), Start Date: 10:05:00 CDT Start Date: 07/08/15 Stop Date: 07/09/15 Status: Discontinuedsimvastatin 20 mg oral tablet 1 tab(s), Oral, HS, called to [facility] today., # 90 tab(s), 0 Refill(s), Start Date : 12/18/15 13:33:00 SPECIMEN COLLECTOR Special Instructions: called to [facility] today. Start Date: 12/18/15 Status: Orderedsimvastatin 40 mg oral tablet 1 tab(s), Oral, HS, # 90 tab(s), 3 Refill(s), Start Date: 09/05/15 11:13:00 CDT , Pharmacy: [facility] Start Date: 09/05/15 Stop Date: 02/03/16 Status: Completedsimvastatin 40 mg oral tablet 1 tab(s), Oral, HS, # 90 tab(s), 3 Refill(s), Start Date: 06/25/14 10:06:10 CDT , Pharmacy: [place] [id number] Start Date: 06/25/14 Stop Date: 09/05/15 Status: Completedsimvastatin 40 mg oral tablet 1 tab(s), Oral, HS, PLEASE INFORM PATIENT THAT SHE NEEDS TO MAKE AN APPT WITH RAHEL. NO FURTHER REFILLS WILL BE AUTHORIZED., # 30 tab(s), 0 Refill(s), Pharmacy: [place] [id number] Special Instructions: PLEASE INFORM PATIENT THAT SHE [...] AUTHORIZED., # 30 tab(s), 0 Refill(s), Pharmacy: [place] [id number] Special Instructions: PLEASE INFORM PATIENT THAT SHE NEEDS TO MAKE AN APPT WITH RAHEL. NO FURTHER REFILLS WILL BE AUTHORIZED. Start Date: 06/20/14 Stop Date: 06/25/14 Status: DiscontinuedSynthroid 25 mcg (0.025 mg) oral tablet 1 tab(s), Oral, Daily, # 90 tab(s), 0 Refill(s), Start Date: 06/25/14 10:06:00 CDT, Pharmacy: [place] [id number] Start Date: 06/25/14 Stop Date: 09/25/14 Status: CompletedSynthroid 25 mcg (0.025 mg) oral tablet 1 tab(s), Oral, Daily, Due for an appt and labs, # 90 tab(s), 0 Refill(s), Start Date: 06/24/15 9:53:21 CDT, Pharmacy: [facility] Special Instructions: Due for an appt and labs Start Date: 06/24/15 Stop Date: 12/18/15 Status: CompletedSynthroid 25 mcg (0.025 mg) oral tablet 1 tab(s), Oral, Daily, # 90 tab(s), 3 Refill(s), Start Date: 12/18/15 11:43:00 SPECIMEN COLLECTOR, Pharmacy: [facility] Start Date: 12/18/15 Status: OrderedSynthroid 25 mcg (0.025 mg) oral tablet 1 tab(s), Oral, Daily, # 90 tab(s), 3 Refill(s), Start Date: 09/25/14 10:30:31 CDT, Pharmacy: [facility] Start Date: 09/25/14 Stop Date: 06/24/15 Status: CompletedTessalon 200 mg oral capsule 1 cap(s), Oral, TID, PRN cough, # 60 tab(s), 1 Refill(s), Start Date: 09/25/14 10:29:00 CDT, Pharmacy: [facility] Start Date: 09/25/14 Stop Date: 12/25/14 Status: DiscontinuedZithromax 250 mg oral tablet See Instructions, as directed on package labeling, # 6 tab(s), 0 Refill(s), Start Date: 07/17/15 10:55:00 CDT, Pharmacy: [place] [id number] Special Instructions: as directed on package labeling Start Date: 07/17/15 Stop Date: 08/15/15 Status: Discontinued Results No data available for this section Immunizations Vaccine Date Refusal Reason influenza virus vaccine, inactivated1 09/09/15 1Result Comment: [09/11/2015] [facility] Procedures Procedure Date Related Diagnosis Body Site Echocardiogram1 07/28/12 Right sided toe amputation 2011 Surgery for dislocated ankle 2009 Cholecystectomy ( open procedure) 1974 section x 3 1EF=60-65% Social History No data available for this section Assessment and Plan No data available for this section
[2017-02-15] MEDS: PHENYLEPHRINE HCL 50 DROP BTL LEFTEYE PRN ×3 (07:20→07:43)
[2017-02-15] MEDS: TROPICAMIDE 150 DROP BTL LEFTEYE PRN ×3 (07:20→07:43)
[2017-02-15] MEDS ORDERED: RINGERS SOLUTION,LACTATED 1,000 ML IV ONE (07:33)
[2017-02-15 09:36] VITALS: BP 135/70
== END 2017-02-15 06:58 | disposition home or self-care (01) ==
LOC: AMB 06:57
PROVIDERS: ATTEND Ophthalmology
PROC: 08RK3JZ Replacement of Left Lens with Synthetic Substitute, Percutaneous Approach (ICD-10-PCS; principal; 2017-02-15 08:00)
DX: H26.9 Unspecified cataract (principal); I10 Essential (primary) hypertension; E11.9 Type 2 diabetes mellitus without complications; M81.0 Age-related osteoporosis without current pathological fracture; E66.01 Morbid (severe) obesity due to excess calories; Z68.42 Body mass index [BMI] 45.0-49.9, adult